=== PATIENT | female | born 1985 | race African-American/Black ===

== ENCOUNTER 2019-02-08 23:52 | Emergency (ER) | payer MEDICAID, OTHER ==
[~2019-02-08] VITALS: Ht 167.6 cm; Wt 95.0 kg
[2019-02-09 00:07] VITALS: BP 102/52
[2019-02-09] MEDS ORDERED: ONDANSETRON 4MG ODT PO ONE (00:15)
== END 2019-02-09 01:20 | disposition home or self-care (01) ==
LOC: ER 23:52
DX: F12.129 Cannabis abuse with intoxication, unspecified (principal); I10 Essential (primary) hypertension
CPT/HCPCS: 99283; Q0162

== ENCOUNTER 2022-04-27 10:37 | Inpatient (IN) | payer MEDICAID, OTHER ==
[~2022-04-27] VITALS: Ht 165.1 cm; Wt 89.4 kg
[2022-04-27] MEDS ORDERED: MORPHINE SULFATE 4 MG/ML CPJ (NOT FOR IM USE) IV ONE ×2 (11:15→13:30)
[2022-04-27] MEDS ORDERED: KETOROLAC 30MG/ML VIAL IV ONE (11:15)
[2022-04-27 11:31] LABS: BASOPHILS % 0.8 % (0.0-2.0); HEMATOCRIT. 33.3 % (36.0-48.0); HEMOGLOBIN. 10.8 g/dL (12.0-16.0); LYMPHOCYTES % 12.5 % (20.0-50.0); MEAN CORPUSCULAR HEMOGLOBIN 23.6 pg (28.0-32.0); MEAN CORPUSCULAR VOLUME 72.8 fL (81.0-99.0); MEAN PLATELET VOLUME 9.3 fl (7.4-10.4); MONOCYTES % 7.6 % (2.0-8.0); NEUTROPHILS % 77.1 % (40.0-76.0); PLATELET 304 x1000/uL (130-400); RED BLOOD CELL COUNT 4.57 mill/uL (4.2-5.4); RED CELL DISTRIBUTION WIDTH 28.2 % (11.6-14.6)
[2022-04-27 11:48] LABS: CHLORIDE 108 mEq/L (98-107)
[2022-04-27 12:07] LABS: B-HCG QUANTITATIVE 2949 mIU/mL (<3)
[2022-04-27 13:27] LABS: PLATELET ESTIMATE NORMAL
[2022-04-27] MEDS ORDERED: DEXT 5%/LR + PITOCIN 20UNITS/L 1,000 ML IV SCH ×2 (17:15→17:30)
[2022-04-27] MEDS ORDERED: OXYTOCIN 30 UNITS/500ML NS PMX 500 ML IV SCH (17:30)
[2022-04-27 17:54] LABS: PARTIAL THROMBOPLASTIN TIME 27.6 sec (23.4-31.0); PROTHROMBIN TIME 10.9 sec (9.6-11.0)
[2022-04-27] MEDS ORDERED: PROPOFOL 200MG/20ML VIAL IV ONE (18:29)
[2022-04-27] MEDS ORDERED: DEXAMETHASONE 4MG/ML 1ML VIAL ONE (18:29)
[2022-04-27] MEDS ORDERED: ONDANSETRON HCL 4MG/2ML INJ ONE (18:29)
[2022-04-27] MEDS ORDERED: MIDAZOLAM HCL 2 MG/2 ML VIAL ONE (18:30)
[2022-04-27] MEDS ORDERED: CEFAZOLIN SODIUM 1000MG/VIAL ONE (18:39)
[2022-04-27] MEDS ORDERED: FENTANYL CITRATE/PF 50MCG/ML 2ML VIAL ONE (18:39)
[2022-04-27] MEDS ORDERED: KETOROLAC 30MG/ML VIAL ONE ×3 (18:46)
[2022-04-27] MEDS ORDERED: RHO(D) IMMUNE GLOBULIN 300 MCG/SYR IM NR (19:15)
[2022-04-27] MEDS ORDERED: IBUPROFEN 800MG TABLET PO NR (19:15)
[2022-04-27 19:36] VITALS: BP 137/88
[2022-04-27] MEDS ORDERED: FENTANYL CITRATE/PF 50MCG/ML 2ML VIAL IV PRN (19:45)
[2022-04-28] MEDS ORDERED: IBUPROFEN 800MG TABLET PO NR (06:00)
[2022-04-28 07:55] VITALS: BP 137/86
== END 2022-04-28 08:22 | disposition home or self-care (01) | DRG 543 ==
LOC: ER 10:37 → 6EST 13:11 → ENRESERV 15:15
PROVIDERS: ADMIT Obstetrics & Gynecology; ATTEND Obstetrics & Gynecology
PROC: 10D17ZZ Extraction of Products of Conception, Retained, Via Natural or Artificial Opening (ICD-10-PCS; principal; 2022-04-27)
DX: O03.4 Incomplete spontaneous abortion without complication (principal); O16.1 Unspecified maternal hypertension, first trimester; O34.11 Maternal care for benign tumor of corpus uteri, first trimester; D25.9 Leiomyoma of uterus, unspecified; Z20.822 Contact with and (suspected) exposure to COVID-19; Z82.3 Family history of stroke; Z82.49 Family history of ischemic heart disease and other diseases of the circulatory system
CPT/HCPCS: 36415; 76830; 76856; 80053; 84702; 85025; 86850; 86900; 87426; 88305; 99285; C9803; J0690; J1100; J1885; J2250; J2270; J2405; J2590; J2704; J3010

== ENCOUNTER 2023-01-11 01:49 | Emergency (ER) | payer MEDICAID ==
[~2023-01-11] VITALS: Ht 165.1 cm; Wt 91.0 kg
[2023-01-11 01:55] VITALS: BP 137/91
[2023-01-11] MEDS ORDERED: BO1 TP (03:22)
== END 2023-01-11 03:32 | disposition home or self-care (01) ==
LOC: ER 02:00
DX: S61.211A Laceration without foreign body of left index finger without damage to nail, initial encounter (principal); I10 Essential (primary) hypertension; W26.0XXA Contact with knife, initial encounter; Y93.89 Activity, other specified; Y92.9 Unspecified place or not applicable
CPT/HCPCS: 12001; 99282; Z7610

== ENCOUNTER 2023-11-07 19:40 | Emergency (ER) | payer MEDICAID ==
[~2023-11-07] VITALS: Ht 162.6 cm; Wt 100.0 kg
[~2023-11-07 19:40] MED LIST: BO1 TP
[2023-11-07 19:52] VITALS: TEMP 98.2; O2SAT 98
[2023-11-08] MEDS ORDERED: DIPHENHYDRAMINE 25MG CAPSULE PO ONE (02:15)
[2023-11-08] MEDS ORDERED: METOCLOPRAMIDE HCL 10MG TABLET PO ONE (02:15)
[2023-11-08] MEDS ORDERED: KETOROLAC 30MG/ML VIAL IM ONE (02:15)
[2023-11-08 03:51] VITALS: BP 178/100; PULSE 85; RESP 14
== END 2023-11-08 03:49 | disposition home or self-care (01) ==
LOC: ER 19:40
DX: R51.9 Headache, unspecified (principal); I10 Essential (primary) hypertension; F19.90 Other psychoactive substance use, unspecified, uncomplicated; F10.10 Alcohol abuse, uncomplicated; Y90.9 Presence of alcohol in blood, level not specified
CPT/HCPCS: 99283; 81025; 96372; Q0163; J8597; J1885